=== PATIENT | female | born 1990 | race Hispanic/Latino ===

== ENCOUNTER 2021-09-10 18:15 | Emergency (ER) | payer BC ==
[~2021-09-10] VITALS: Ht 165.1 cm; Wt 113.4 kg
[2021-09-10] MEDS ORDERED: LIDOCAINE HCL 1% LOCAL INJ 20 ML VIAL ONE (19:13)
[2021-09-10] MEDS ORDERED: KETOROLAC TROMETHAMINE 60 MG/2 ML VIAL ONE (19:13)
[2021-09-10] MEDS ORDERED: KETOROLAC TROMETHAMINE 60 MG/2 ML VIAL IM NR (19:15)
[2021-09-10] MEDS ORDERED: LIDOCAINE HCL 1% LOCAL INJ 20 ML VIAL INJ NR (19:15)
[2021-09-10] MEDS ORDERED: BACTRIM DS TAB1 EACH PO (19:50)
== END 2021-09-10 20:07 | disposition home or self-care (01) ==
LOC: FSED 19:20
DX: L02.214 Cutaneous abscess of groin (principal)
CPT/HCPCS: 10061; 99282; J1885; J2001